=== PATIENT | male | born 1960 | race Caucasian/White ===

== ENCOUNTER 2021-10-28 15:55 | Emergency (ER) | payer OTHER ==
[2021-10-28] MEDS ORDERED: COLCHICINE0.6 M1 PO (16:42)
[2021-10-28] MEDS ORDERED: INDOCIN CAP 2525 MG PO (16:42)
== END 2021-10-28 17:00 | disposition home or self-care (01) ==
LOC: ER1 15:55
DX: M10.9 Gout, unspecified (principal)
CPT/HCPCS: 99283